=== PATIENT | female | born 1970 | race Caucasian/White ===

== ENCOUNTER 2017-01-31 07:40 | Day surgery (SDC) | payer OTHER ==
[2017-01-31] VITALS (7 sets, daily range): BP systolic 106–124; BP diastolic 61–73; PULSE 60–68; RESP 12–17; O2SAT 96–100
[~2017-01-31] VITALS: Ht 160 cm; Wt 85.4 kg
[~2017-01-31 07:40] MED LIST: BACL20TA PO; CeFAZolin Inj 2 GM in IV Premix 1 EACH IV ONE; DIME240C2 PO; FLUO20CA25 PO; GABA-502 PO; Lactated Ringer's 1,000 ML IV SCH; magnesium; vitamin d
[2017-01-31] MEDS ORDERED: Ondansetron 2 mg/mL 2 mL Inj ONE (07:41)
[2017-01-31] MEDS ORDERED: Dexamethasone 4 mg/mL Inj ONE (07:41)
[2017-01-31] MEDS ORDERED: fentaNYL-PF 50 mCg/mL 2 mL Inj ONE (07:41)
[2017-01-31] MEDS ORDERED: Propofol 10,000 mCg/mL 20 mL Inj ONE (07:41)
[2017-01-31] MEDS ORDERED: Lidocaine PF 1% 30 mL Inj ONE (07:41)
--- NOTE | 2017-01-31 09:17 | PCM.HPANE ---
Patient Data Date of Service: Jan 31, 2017 Surgeon Admitting Provider: Attending Provider:Dionicio Santos MD Primary Care Physician:Reza Mcghee DO Other Provider:Sonia Gonzalez Anesthesia Reason for Visit Right Medial Meniscal Tear Ht/WT & BMI Height (Feet): 5 Height (Inches): 3 Weight (Kilograms): 85.4 Body Mass Index 33.00 Allergies Coded Allergies: erythromycin base (Verified Adverse Reaction, Severe, vomitting, 01/28/16) Past Anesthesia History Anesthesia History: Positive for:: Fam Anesthesia Reaction (mother had hard time waking up ), Denies:: Abnormal Airway, Anesthesia Reactions, Difficult Intubation Diabetes History Hx Diabetes?: No MRSA MRSA: No Medications Hypertension Medication: No Home Meds Incl Beta Harinder: No Reported Medications [magnesium] No Conflict CheckUnknown Dose DAILY 01/26/17 [vitamin d] No Conflict CheckUnknown Dose DAILY 01/26/17 Dimethyl Fumarate (Tecfidera)240 Mg [id number] Mg PO BID 01/26/17 Gabapentin 300 Mg [id number] Mg PO TID Ref 0 01/26/17 Fluoxetine 20 Mg [id number] Mg PO DAILY Ref 0 01/26/17 Baclofen 20 Mg Afyefn13 Mg PO QID Ref 0 01/26/17 History HEENT History: Denies:: Abnormal Airway Cataracts Difficult Intubation Dysphagia Glaucoma Hearing Problem Sinus Problem TMJ Other HEENT Pertinent History: optic neuritis left eye- residual swelling, paleness, vision issues Cardiovascular History: Denies:: AICD Abdominal Aortic Aneurism Atrial Fibrillation Cardiac Surgery Chest Pain Congestive Heart Failure Coronary Artery Disease Edema Heart Murmur Hypertension Irregular Heartbeat Pacemaker Peripheral Vascular Rheumatic Fever Thrombophlebitis Hx of Respiratory Problem?: No Respiratory History: Denies:: Asthma COPD Emphysema Oxygen Administration Pneumonia (past hx of remote (16 years ago)) Tuberculosis Use of Inhalers / NEBS Hx Neurologic Problems?: Yes Neurological History: Positive for:: Multiple Sclerosis (1998 onset- major symptoms- muscle weakness, spasticity, foot drop) Denies:: CVA Headaches Parkinson's Disease Seizures TIA Hx of GI Problems?: No Gastrointestinal History: Denies:: Cirrhosis Gall Bladder Disease Gastroesphageal Reflux Gastrointestinal Bleeding Heartburn Hepatitis Hiatal Hernia Liver Disease Rectal Bleeding Hx of Problems?: No Genitourinary History: Denies:: Kidney Stones Urinary Tract Infection Female Hx: Denies:: Currently Problems with Breasts? Skin History: Denies:: History Skin Disorders? Pressure Ulcers Hx Musculoskeletal Problems?: Yes Musculoskeletal History: Positive for:: Musculoskeletal Trauma (right knee current admission problem) Osteoarthritis (right knee) Denies:: Back Injury Degenerative Joint Fibromyalgia Joint Replacement Hx of Psycho/Social Problems?: Yes Psycho Social History: Positive for:: Hx Depression Denies:: Anxiety Hx Surgeries?: Yes (hernia as child) Hx Any Other Health Problems?: Yes Other History: Denies:: Cancer Thyroid Disease History Blood Transfusions: Positive for:: Accept Blood Products? Denies:: Blood Transfusions Hx Diabetes: No Hx Alcohol Use: YesAlcoholic Drinks Per Day: 2-3 drinks monthlyHx Substance Use: No Smoking Status: Former Smoker Have You Smoked inLast 12 mo: No Stop/Bang S-Snoring: Do You Snore Loudly: No T-Tired: feel tired, fatigued: No O-Obsered: Observed not breath: No P-Blood Pressure: treated: No B- Body Mass Index > 35 kg/m2: No A- Age over 50: No N- Neck Large Circumference: No G- Gender Male: No YANIRA Total Score: 0 YANIRA Risk Assessment: Low Risk, <3 Yes Risk Assessment Category Category 1A: Patient has history of documented sleep apnea, and HAS NOT received any narcotic, sedative or anesthesia administration during this stay. Category 1B: Patient has history of documented sleep apnea, and HAS received any narcotic , sedative or anesthesia administration during this stay Category 2: Patient has SUSPECTED Obstructive Sleep Apnea, and HAS received any narcotic , sedative or anesthesia administration during this stay. Category 3: Patient has SUSPECTED Obstructive Sleep Apnea and HAS NOT received narcotic, sedative or anesthesia administration during this stay. Category 4: Outpatient in Procedural Areas with known sleep apnea or who screen positive for High Risk via the STOP/BANG questionnaire. Exam Exam Vital Signs Vital Signs Date Time Temp Pulse Resp B/P Pulse Ox O2 Delivery O2 Flow Rate FiO2 01/31/17 08:14 36.2 66 16 106/65 98 Room Air General Appearance: Alert, Oriented X3, Cooperative, No Acute Distress HEENT/AIRWAY: MP 2 Lungs: Clear to Auscultation, Normal Air Movement Heart: Exam Unremarkable, Regular Rate/Rhythm, No Murmurs/Rubs/Gallops Plan Impression Patient chart reviewed, patient interviewed and anesthestic plan with risks, benefits, and alternatives discussed, and informed consent obtained. NPO Status: 01/30 ASA Physical Status: ASA3 Severe Disease Anesthetic Plan: GA Bene/Risks/Altern/Consents: Yes HP Complete Prior to Induction: Yes Lance Nunez MD Jan 31, 2017 09:17
[2017-01-31] MEDS ORDERED: Lactated Ringer's 1,000 ML IV ONE (09:22)
[2017-01-31] MEDS ORDERED: Ketorolac 15 mg/mL Inj IVPUSH ONE (09:25)
[2017-01-31] MEDS ORDERED: HYDROcodone-APAP 5-325 mg Tablet PO PRN (09:25)
[2017-01-31] MEDS ORDERED: Atropine 0.4 mg/mL Inj IVPUSH PRN (09:35)
[2017-01-31] MEDS ORDERED: HYDROmorphone 1 mg/mL Inj IVPUSH PRN (09:35)
[2017-01-31] MEDS ORDERED: EPHEDrine Sulfate 50 mg/mL Inj IVPUSH PRN (09:35)
[2017-01-31] MEDS ORDERED: Labetalol 5 mg/mL 4 mL Inj IV PRN (09:35)
[2017-01-31] MEDS ORDERED: Lactated Ringer's 500 ML IV PRN (09:35)
[2017-01-31] MEDS ORDERED: fentaNYL-PF 50 mCg/mL 2 mL Inj IVPUSH PRN (09:35)
[2017-01-31] MEDS ORDERED: MetoCLOpramide 5 mg/mL 2 mL Inj IVPUSH PRN (09:35)
[2017-01-31] MEDS ORDERED: hydrALAZINE 20 mg/mL Inj IVPUSH PRN (09:35)
[2017-01-31] MEDS ORDERED: Ondansetron 2 mg/mL 2 mL Inj IVPUSH PRN (09:35)
[2017-01-31] MEDS ORDERED: Lactated Ringer's 1,000 ML IV SCH (09:35)
[2017-01-31] MEDS ORDERED: Phenylephrine 10,000 mCg/mL Inj IVPUSH PRN (09:35)
[2017-01-31] MEDS ORDERED: Ropivacaine-PF 0.5% 30 mL Inj INFILTRATE ONE (09:37)
--- NOTE | 2017-01-31 09:59 | PCM.ANEP1 ---
Post Anesthesia Phase 1 PACU Phase 1 Assessment Date of Service: Jan 31, 2017 Vital Signs 36.4 112/72 68 14 96% RA Anesthetic Administered: GA Level of Alertness: Awake, talking PEREZ's with Equal Strength: Yes Pain: No Nausea or Vomiting: No Oxygen Delivery: Room Air Lungs: Clear to Auscultation, Normal Air Movement Lance Nunez MD Jan 31, 2017 09:59
--- NOTE | 2017-01-31 10:08 | PCM.ORTHOP ---
Orthopedic Operative Report Date of Service: Jan 31, 2017 Pre Operative Diagnosis Right knee lateral meniscus tear, chondromalacia Post Operative Diagnosis Right knee chondral malacia, moderate synovitis Procedure Right knee arthroscopy, lateral meniscal debridement, chondroplasty, partial synovectomy Surgeon Surgeon: Dionicio Santos MD Assistants: None Indication for Procedure Right knee meniscus tear Findings Per dictation Details of Procedure INDICATIONS: Tangela Townsend is a 46-year-old female who has had a history of right knee pain. The patient has failed conservative management. X-rays show the tibiofemoral joints to be preserved with mild DJD. MRI was obtained which reveals lateral meniscus tear. The patient has had persistent symptoms and is now brought to the operating room for arthroscopy. The risks, benefits, and alternatives of surgery were discussed with the patient. The risks included but were not limited to infection, bleeding, damage to vessels and nerves, loss of motion, continued pain, re-tear of the meniscus, deep venous thrombosis, and complications due to anesthesia including nerve injury, myocardial infarction, stroke, , etc. The patient stated understanding of the nature of the surgical procedure and gave written and verbal consent to proceed. PROCEDURE: The patient was brought to the operating room and placed supine on the operating room table. After the administration of general anesthesia the patient was placed in the supine position. Examination of the knee revealed no evident instability with a trace effusion. All prominences were padded with appropriately and neurovascular structures protected. The right knee was confirmed to be the appropriate site following surgical time out. The right lower extremity was examined under anesthesia. Range of motion was 0-135 degrees. There was no varus or valgus or anterior or posterior instability. The right lower extremity was then prepped and draped in the usual fashion. Sterile prep and drape was then undertaken of the knee. The knee joint was injected with 20 ccs of 1% Lidocaine, along with 3 ccs of 1 % lidocaine in the medial and lateral portal sites respectively. A standard anterolateral parapatellar stab wound was created. The knee joint was entered with a blunt- tipped obturator, followed by the 30-degree video arthroscope. An anteromedial portal was established under arthroscopic control. A routine arthroscopic survey was performed. The patellofemoral joint showed grade 2/3 chondromalacia which was debrided down to stable tissue with a shaver. The medial joint space was then entered. The articular surfaces showed grade 3/ 4chondromalacia. The meniscus appeared intact and was stable to probing. The ACL and PCL were noted to be intact. The lateral joint space was then entered. The articular surfaces were intact with grade 2/3 chondromalacia. There was a degenerative fraying to the lateral aspect of the lateral meniscus. The shaver instruments was then inserted and debridement of this tissue down to stable tissue was undertaken. Moderate synovitis was noted anteriorly in the medial and lateral compartment and debrided with a shaver. Grade 3/4, chondromalacia which was noted lateral compartment was debrided down with a shaver. The knee was irrigated with an additional 2 liters of lactated Ringer's solution. Excess fluid was drained. The portals were closed with 3-0 nylon as well as xeroform. The knee was injected with 20 mL of 0.5% ropivacaine. A dry sterile dressing was applied, followed by an LEONARDA hose, soft roll, and EUN bandage. The patient was awakened in the operating room and transported to the recovery room in satisfactory condition. The patient appeared to tolerate the procedure well. At the completion of surgery the patient had soft compartments , palpable pulses, and brisk capillary refill. There were no complications noted. Grafts, Implants: None Complications There were no periprocedural complications identified. Condition Stable Anesthetic Administered: GA Catheters: None Output, Estimated Blood Loss: 5 Blood Admin during surgery: No Surgical Specimen Removed: No Specimen sent to Pathology: No copies to: Dionicio Santos MD, Christopher L MD Jan 31, 2017 10:08
--- NOTE | 2017-01-31 11:27 | PCM.ANEP2 ---
Post Anesthesia Evaluation ASA/CMS Post Anesthesia Date of Service: Jan 31, 2017 VS in Patient's Normal Range?: Yes Resp Stable; Airway Patent?: Yes CV Function & Hydration Stable: Yes Mental Status Recovered?: Yes Pain control Satisfactory?: Yes N/V Control Satisfactory?: Yes Lance Nunez MD Jan 31, 2017 11:27
== END 2017-01-31 23:59 | disposition home or self-care (01) ==
LOC: SAS 07:40
PROVIDERS: ATTEND Orthopaedic Surgery
DX: S83.281A Other tear of lateral meniscus, current injury, right knee, initial encounter (principal); X50.0XXA Overexertion from strenuous movement or load, initial encounter; Y93.9 Activity, unspecified; Y92.512 Supermarket, store or market as the place of occurrence of the external cause; Y99.0 Civilian activity done for income or pay; M65.861 Other synovitis and tenosynovitis, right lower leg; M22.41 Chondromalacia patellae, right knee; M25.461 Effusion, right knee; Z87.891 Personal history of nicotine dependence
CPT/HCPCS: 29881; J0690; J1100; J1885; J2250; J2405; J2795; J3010; J7120